=== PATIENT | male | born 1965 | race African-American/Black ===

== ENCOUNTER 2016-12-17 16:30 | Emergency (ER) | payer OTHER ==
[~2016-12-17] VITALS: Ht 165.1 cm; Wt 74.8 kg
--- NOTE | 2016-12-17 16:57 | ED PSYCHIATRIC COMPLAINT ---
History of Present Illness General Chief Complaint: ETOH/Drug Related Complaint Stated Complaint: ETOH Source: patient, old records, EMS Exam Limitations: intoxication Vital Signs & Intake/Output Vital Signs & Intake/Output Vital Signs Date Time Temp Pulse Resp B/P Pulse O2 O2 Flow FiO2 Ox Delivery Rate 12/17 2017 98.0 78 18 120/60 98 Room Air 12/178 96.3 95 18 110/56 95 Room Air 12/176 96.9 12/17 1654 94.5 12/17 1654 94.5 113 18 109/68 97 Room Air Reconcile Medications No Known Home Medications Triage Note: PT BIBA AFTER POLICE INTERACTION FOR WANDERING IN THE STREETS. PT STATED HE WAS LOOKING FOR HIS SISTERS HOME. PT APPEARED INTOXICATED AND ADMITTED TO DRINKING 1/2 PINT OF VODKA. PT DENIED ILLICIT DRUG USE. PT DENIED SI/HI. SECURITY AT BEDSIDE FOR WANDING. PT CHANGED INTO PAPER SCRUBS Triage Nurses Notes Reviewed? yes Onset: Just prior to arrival Duration: constant, continues in ED Timing: recent history Severity: moderate Associated Symptoms: impaired concentration HPI: Patient brought in by ambulance for public intoxication. He reports he is homeless and was looking for his sister's home. He denies fever chills nausea vomiting diarrhea abdominal pain chest pain shortness breath headache dysuria rash bleeding suicidal ideation homicidal ideation hallucination. (LÁZARO BLANCA MD) Past History Medical History Any Pertinent Medical History? see below for history Other Medical Hx: alcoholism Surgical History Surgical History: non-contributory Family History Hx Contributory? No (LÁZARO BLANCA MD) Review of Systems Review of Systems Constitutional: Reports: no symptoms. EENTM: Reports: no symptoms. Respiratory: Reports: no symptoms. Cardiovascular: Reports: no symptoms. GI: Reports: no symptoms. Genitourinary: Reports: no symptoms. Musculoskeletal: Reports: no symptoms. Skin: Reports: no symptoms. Neurological/Psychological: Reports: see HPI, cognitive dysfunction, confusion. Hematologic/Endocrine: Reports: no symptoms. Immunologic/Allergic: Reports: no symptoms. All Other Systems: Reviewed and Negative (LÁZARO BLANCA MD) Physical Exam Physical Exam General Appearance: well developed/nourished, alert, awake, anxious, mild distress Head: atraumatic, normal appearance Eyes: Bilateral: normal appearance, PERRL, EOMI. Ears, Nose, Throat: normal pharynx, normal ENT inspection, hearing grossly normal Neck: normal inspection, supple Respiratory: normal breath sounds Cardiovascular: regular rate/rhythm Gastrointestinal: soft, non-tender Extremities: normal range of motion Neurological/Psychiatric: no motor/sensory deficits, awake, alert, anxious, radiation therapy technologist II-XII nml as tested Appearance/Memory/Insight: disheveled, impaired insight Behavoir/Eye Contact/Speech: cooperative, slurred speech Thoughts/Hallucinations: no apparent hallucination Skin: intact, normal color, warm/dry SAD PERSONS Done? patient not suicidal (LÁZARO BLANCA MD) Progress Differential Diagnosis: drug intoxication, drug overdose, drug withdrawal, electrolyte abnormality, hypoglycemia Plan of Care: Orders Procedure Date/time Status Regular Diet 12/18 B Active observe for sobriety (LÁZARO BLANCA MD) Hand-Off Endorsed To: SERGEI SALINAS MD Endorsed Time: 1899 Pending: other (sobriety) Comments: Breathlyzer 0.269 @ 445 PM. (LÁZARO BLANCA MD) Comments: 12/17/2016 9:28:27 PM patient signed out to me by Dr. Blanca at shift change of address clerk. The patient is now awake alert conversant and quite pleasant and appreciative. He wishes to go. He has a bus pass. (SERGEI SALINAS MD) Departure Departure Disposition: HOME OR SELF CARE Condition: Stable Clinical Impression Primary Impression: Alcohol intoxication delirium Departure Forms: General Discharge Information Prescriptions: Current Visit Scripts No Known Home Medications (LÁZARO BLANCA MD) Departure Additional Instructions: Try to cut down on your drinking. Follow-up with your primary care physician ( or if you do not have one contacted [facility]) as soon as possible for general medical evaluation. Return if any concerns or sudden worsening. (SERGEI SALINAS MD)
[2016-12-17 20:18] VITALS: BP 120/60
== END 2016-12-17 21:50 ==
LOC: ERH 16:30 → EDSEX 16:30 → EDBD 16:30 → ERH 21:45
DX: F10.121 Alcohol abuse with intoxication delirium (principal)